=== PATIENT | male | born 1960 | race Caucasian/White ===

== ENCOUNTER 2018-01-13 08:30 | Outpatient (RCR) | payer OTHER, SELFPAY ==
--- NOTE | 2017-12-19 08:30 | PTTR_ITS ---
DATE: 12/19/17 SUBJECTIVE: Naren indicates since starting the soft tissue mobilization on his hip, he is definitely noted improvement with decreased stiffness. Manual therapy: (26859m2).Did receive inferior mobs while in supine position with hip and knee flexed to 90 degrees. This was followed by soft tissue mobilization throughout the glut, TFL, proximal ITB and hip flexors while in L sidelying and supine positions. He did receive stretching of the R hamstring, ITB, piriformis, TFL and quad. Therapeutic procedures (26164g9). * x See flow sheet: focus was on strengthening of R LE and hip stabilizers. * x Provided skilled instruction in proper exercise performance: * x Provided skilled manual cues to facilitate proper muscle recruitment and/ or movement pattern: * Other: performed 20 mins of wellness at no charge. Total treatment time: 50 mins/ Direct 30 mins. SG/dl
--- NOTE | 2017-12-22 08:30 | PTTR_ITS ---
DATE: 12/22/17 SUBJECTIVE: Patient reports his doctor s appointment went well and he said everything was looking good. He did not have an x-ray done at his appointment. He states he is still planning on returning to work on January 30. He is still having difficulty sleeping. OBJECTIVE: Manual therapy: (62720x3). Performed STM right posterior lateral hip into gluteal musculature, piriformis, and ITB. Therapeutic procedures (86203j0). [X] See flow sheet: Continued progressing LE strengthening and core stabilization program. [X] Provided skilled instruction in proper exercise performance: for proper body mechanics and postural awareness. [X] Provided skilled manual cues to facilitate proper muscle recruitment and/or movement pattern: Continued with wellness portion of program x 30 minutes to complete ther-ex portion of program. Direct treatment time: 30 minutes Total treatment time: 60 minutes Aspen Arita, SPT Wanda Neri, MPT
--- NOTE | 2017-12-25 13:15 | PTTR_ITS ---
DATE: 12/25/17 SUBJECTIVE: Naren states that he was sore in upper buttock region after his last session. OBJECTIVE: Manual therapy: (96624a7). stretching of bilateral LE including hamstrings, ITB and piriformis. LE distractions via leg pulls. ROM t/o all planes. He went into prone and received STM t/o right upper buttock with focus on glut medius, piriformis, and TFL. PRT' s and CFM t/o pelvic brim, sacral border and along proximal ITB. Therapeutic procedures (29449e3). * x See flow sheet: for global LE strength and stabilization with focus on gluts. * x Provided skilled instruction in proper exercise performance: proper glut engagement as well as postural cues and avoiding compensatory mvmt patterns. Ended with cryo to posterior hip and buttock x 10 min with legs elevated. Direct treatment time: 45 min Total treatment time: 60 min
--- NOTE | 2017-12-30 10:00 | PTTR_ITS ---
DATE: December 30, 2017 SUBJECTIVE: Naren continued to note that he is not sleeping well. He normal is 6 hours of sleep, he reports he is currently judith to get over 2 hours of sleep. He has tried multiple medications and they do not seem to be helping. He notes this is the prime time that his hip aches into the ITB region. He has tried self massage with use of the foam roller at home. He has trialed both ice and heat with minimal relief. Overall functional feels that he is steadily improving. OBJECTIVE: Manual therapy: ([id number]).STM throughout the lateral hip and gluteal musculature in left side lying position with pillow in between legs for comfort. TPR and CFM to the greater trochanter. IASTM followed to the ITB working distal to proximal. KT tape to the ITB provided. Will monitor his response to the more aggressive soft tissue work and with use of the tape to see if this provided him any further relief. Therapeutic procedures ([id number]). * X See flow sheet: Open and closed kinetic chain strength and stabilization per protocol. Held on SL lift due to mild irritation into the glut musculature. * X Provided skilled instruction in proper exercise performance: promoting core engagement and proper postural awareness. * X Provided skilled manual cues to facilitate proper muscle recruitment and/ or movement pattern: * X Other:20 minutes of Wellness portion of the program followed. Ended with cryotherapy post session for 10 minutes to the lateral left hip and thigh. Will follow up 1 more time this week and continue with progression within symptom allowance. Direct treatment time: 30 minutes Total treatment time: 60 minutes
--- NOTE | 2018-01-01 11:43 | PTTR_ITS ---
DATE: 01/01/18 SUBJECTIVE: Naren states that he is doing okay. He felt as though the kinesiotape was helpful. OBJECTIVE: Manual therapy: (06045e9). Mobilizations of hip including inferior glides, ROM t/o all planes. Stretching of hamstrings, piriformis and ITB. LE distractions via leg pulls. STM t/o ITB and TFL. CFM over greater trochanter using IASTM (graston tools) I then applied Kinesiotape to ITB using I strip. He performed his ther ex routine via [facility] at no charge. Direct treatment time: 30 min Total treatment time: 60 min
--- NOTE | 2018-01-05 08:46 | PTTR_ITS ---
DATE: 01/05/18 OBJECTIVE: Therapeutic procedures (88590e8). Today Naren performed his ther-ex routine (per flow sheets). He was instructed in a 2 Day per week MSP. Naren notes he is holding up fairly, and has seen improvements. He is not reporting a great deal of right hip discomfort. Still reporting that the night time is more difficult in terms of achiness. He has difficulty finding a comfortable position for sleep. Naren performed today's routine without difficulty. Will monitor his response and see him later in the week for initiation of Day 2 strengthening. Direct treatment time: 8:30 til 9:10 A.M. Completed the remainder of his program from 9:10 til 9:40 A.M. via Wellness at no charge. RF/gc
--- NOTE | 2018-01-08 08:06 | PTTR_ITS ---
DATE: 01/08/18 OBJECTIVE: Today Naren was instructed in day #2 of his strengthening program. Will now carry out his strengthening via MSP. Naren did tolerate today's session well without significant increase in pain. Was able to complete all stretching and strengthening with mild to moderate fatigue noted throughout the LE and core. Treatment concluded without the use of modalities, Moving forward with Naren we will co-treat, having Naren receive soft tissue mobilization 1x per week with either TESSIE Huber or a SENIOR QUALITY ANALYST. Will look to recheck Naren's program in 2 to 3 weeks prior to his return to work in mid January. Therapeutic procedures ([id number]). Direct treatment time: 8:30 til 9:10 A.M. ZACKERY/jacey
--- NOTE | 2018-01-13 10:21 | PTTR_ITS ---
DATE: 01/13/18 SUBJECTIVE: Naren reports that he is doing well. OBJECTIVE: Manual therapy: ([id number]). STM t/o hip and glut region. PRT's of glut medius and lelo. IASTM using Graston tools t/o lateral hip and into ITB, and greater trochanter. Scar tissue mobs. He went on to complete his independent ther ex routine for global LE strength and hip/glut stabilization. Direct treatment time: 20 min Total treatment time: 60 min (no charge for ther ex routine)
== END 2018-01-16 23:59 | disposition home or self-care (01) ==
LOC: PT 08:30
PROVIDERS: PCP Emergency Medicine; Referring Provider Orthopaedic Surgery; Visit Provider Orthopaedic Surgery
DX: Z47.1 Aftercare following joint replacement surgery (principal); Z96.641 Presence of right artificial hip joint
CPT/HCPCS: 97110; 97140

== ENCOUNTER 2018-08-11 09:19 | Outpatient (CLI) | payer OTHER, SELFPAY ==
[2018-08-11 11:40] LABS: Anion Gap 7.2 mmol/L (3-11); BUN 17 mg/dL (7-18); CO2 30.8 mmol/L (21.0-32.0); CREATININE 1.04 mg/dL (0.70-1.30); Calcium 9.6 mg/dL (8.5-10.1); Chloride 103 mmol/L (98-107); Cholesterol 236 mg/dL (50-200); Glucose 83 mg/dL (70-100); HDL Cholesterol 51 mg/dL (40-60); LDL CHOLESTEROL 149 mg/dL (<100); Potassium 4.7 mmol/L (3.5-5.1); Sodium 141 mmol/L (136-145); Triglyceride 139 mg/dL (30-150)
== END 2018-08-11 09:39 ==
PROVIDERS: PCP Emergency Medicine; Visit Provider Family Medicine
DX: I10 Essential (primary) hypertension (principal); E78.1 Pure hyperglyceridemia
CPT/HCPCS: 36415; 80048; 80061; 83721

== ENCOUNTER 2018-09-30 09:41 | Outpatient (CLI) | payer OTHER, SELFPAY ==
[2018-10-01 10:06] LABS: PSA, Screening 1.2 ng/ml (0-3.5)
== END 2018-09-30 10:01 ==
PROVIDERS: PCP Emergency Medicine; Visit Provider Emergency Medicine
DX: Z12.5 Encounter for screening for malignant neoplasm of prostate (principal)
CPT/HCPCS: 36415; 84153

== ENCOUNTER 2020-10-11 09:06 | Outpatient (REF) | payer OTHER, SELFPAY ==
[2020-10-11 13:59] LABS: Calculated LDL 154 mg/dL (<100); Cholesterol 241 mg/dL (<200); HDL Cholesterol 70 mg/dL (40-60); Triglyceride 85 mg/dL (<150)
== END 2020-10-11 09:07 | disposition home or self-care (01) ==
LOC: LBN 09:06
PROVIDERS: PCP Emergency Medicine; Visit Provider Emergency Medicine
DX: Z00.00 Encounter for general adult medical examination without abnormal findings (principal); Z13.220 Encounter for screening for lipoid disorders
CPT/HCPCS: 80061

== ENCOUNTER 2021-02-08 12:03 | Emergency (ER) | payer OTHER, SELFPAY ==
--- OUTSIDE RECORDS SUMMARY | 2021-02-08 12:38 | XMS_ITS ---
:1960 Author Care Team Providers Name Role Phone YAMILE RYLEY Primary Care Provider [phone] KATE DYE General Surgeon [phone] Allergies Code Code System Name Reaction Severity Status Onset 2670 RxNorm Codeine Headache Mild Active ? 3355 RxNorm Diclofenac Dizziness Mild to Active ? Moderate 727895 RxNorm House Dust ? ? Active ? Shellfish Anaphylaxis Severe Active ? Derived Medications Name Status Start Date Stop Date ? ? amoxicillin 500 mg capsule Completed ? 10/20 cyclobenzaprine 10 mg tablet Completed ? 08/2018 hydromorphone 2 mg tablet Completed ? 2018 ibuprofen 800 mg tablet Active ? Not avai lable lorazepam 1 mg tablet Completed ? 10/20/2018 magnesium 250 mg (as magnesium oxide) tablet Active ? Not available Take 1 tablet every day by oral route in the evening. meloxicam 15 mg tablet Completed ? 9 montelukast 10 mg tablet Active ? Not chai ilable pantoprazole 20 mg tablet,delayed release Active ? Not available one tablet once daily ranitidine 300 mg tablet Active ? Not chai ilable Xarelto 10 mg tablet Completed ? 10/20/2018 Problems Name Status Onset Date Source ? Finding of Esophagus Active ? History Disorder of Esophagus Active ? History Procedures Date Name Performed by ? 11/12/2018 Hernia Repair Epigastric Information not available Notes: irreducible epigastric hernia, umbilical hernia 05/27/2017 Egd Information not avai lable Notes: distal esophageal stricture; Large hiatal hernia; Antral gastritis; 11/07/2008 05/19/2017 Total Hip Arthroplasty Information not a vailable Notes: right 05/30/2014 Colonoscopy Information not avai lable Notes: at [facility] 05/19/2014 Total Hip Arthroplasty Information not a vailable Notes: left Results Lab Results Date Name Specimen Result Interpretation Description Value Range Status Address ? 05/27/2017 [place], TISS ? Final microbiology ? Final [place] [facility] ([facility] : [address] 05/27/2017 Pathology Study TISS ? Report results below ? Final [facility] ab (Internal) : [address] Past Encounters None recorded. Social History Tobacco Smoking Status Never Smoker Vaccine List None recorded. Plan of Care Reminders Provider Appointments None ? ? recorded. Lab None ? ? recorded. Referral None ? ? recorded. Procedures None ? ? recorded. Surgeries None ? ? recorded. Imaging None ? ? recorded. Vitals 12/07/2018 01:45PM Office 15 Height 165.1 cm 10/27/2018 01:00PM Office 15 Height 165.1 cm 09/30/2018 Height Weight BMI Blood Pressure 165.1 cm 71.21 kg 26.1 kg/m2 114/76 mm[Hg] 05/23/2017 Weight 72.57 kg 05/23/2017 Height 167.64 cm 05/05/2017 Weight Blood Pressure 72.12 kg 108/70 mm[Hg] 05/05/2017 Height 167.01 cm
[2021-02-08 12:55] VITALS: BP 137/85; PULSE 78; RESP 16; O2SAT 98
--- NOTE | 2021-02-08 13:15 | DI.RAD_ITS ---
Exam(s) XR THUMB LT EXAM: XR THUMB LT CLINICAL HISTORY: laceration, injury. TECHNIQUE: 2D digital imaging was performed. COMPARISON: No exams were available for comparison FINDINGS: Soft tissue avulsion and bandage dorsally. No obvious acute fracture. Small calcific density seen o ff the interphalangeal joint noted but this appears corticated, probably sesamoid. Mild degenerative changes noted in the interphalangeal joint. No radiopaque foreign body. IMPRESSION: No obvious thumb fracture evident. DATA REPOSITORY: RADIATION DOSE DELIVERED:
--- NOTE | 2021-02-08 13:46 | ED.GENADUL_ITS ---
Discharge Plan Disposition Patient Disposition: HOME Condition: Stable Discharge Details Clinical Impression: Laceration of left thumb Primary Care Provider: Augustus Olsen ED Provider: Hans Bustos Home Meds and New Rx's Prescriptions: New cephalexin 500 mg tablet 500 mg PO BID Qty: 9 RF: 0 No Action acetaminophen 500 MG tablet 2 tab PO PRN RF: 0 Annika-Harvey Plus Cold/CoughFm 1 EACH capsule 1 ea PO PRN RF: 0 amoxicillin 500 MG capsule 500 mg PO RF: 0 montelukast 10 mg tablet 10 mg PO DAILY Qty: 60 RF: 6 triamcinolone acetonide 0.1 % cream 1 applic topical BID Qty: 453.6 RF: 4 Discharge Instructions Instructions: Laceration (ED) Additional Instructions: Please keep dressing intact for the next 4 days. Change dressing daily. Monitor for signs including increased redness, warmth, or discharge. Please follow-up with orthopedic surgery for repeat wound check next week. Take antibiotic as prescribed. Medication reconciliation was not performed today. Please be sure to discuss your medications with your doctor. Take tylenol for pain. Dose according to label Return to the ER immediately for any worsening or new concerning symptoms. Referrals: [facility] [Provider Group] Discharge Data Discharge Date/Time-TO BE ENTERED AT DEPARTURE: 02/08/21 15:28 Medical Decision Making 60-year-old male with laceration of his right distal thumb involving eponychium. Sensory function intact. Motor function intact. Extensor tendon function intact. No damage to the nailbed. Digital block was performed. Wound irrigated with copious sterile saline and repaired. Sterile dressing was applied. Splint was applied. Patient advised to follow-up with orthopedics given complexity of wound and nail fold involvement. HPI General Mode of arrival: ambulatory . Date/Time Provider Initiated Documentation: 02/08/21 13:28 . Limitations to Documentation: no limitations . Information obtained by: patient . HPI Narrative: 60-year-old male presents with chief complaint of laceration. Patient notes that a window dropped on his thumb and he sustained laceration distally. This occurred just prior to arrival. Wound is bleeding. Bleeding improved with dressing. Symptoms have been persistent. Related Data Home Medications Medication Instructions Recorded Confirmed acetaminophen 2 tab PO PRN 04/13/14 02/08/21 [id number]-acetaminophen 1 ea PO PRN 08/12/17 02/08/21 [Annika-Harvey Plus Cld-Cough Cp] amoxicillin 500 mg PO cap 09/15/17 02/08/21 montelukast 10 mg tablet 10 mg PO DAILY #60 tab-cap 05/02/20 02/08/21 triamcinolone acetonide 0.1 % 1 applic TOPICAL BID #453.6 g 08/14/20 02/08/21 topical cream cephalexin 500 mg PO BID #9 tab 02/08/21 Previous Rx's Medication Instructions Recorded montelukast 10 mg tablet 10 mg PO DAILY #60 tab-cap 05/02/20 triamcinolone acetonide 0.1 % 1 applic TOPICAL BID #453.6 g 08/14/20 topical cream cephalexin 500 mg PO BID #9 tab 02/08/21 Allergies Allergy/AdvReac Type Severity Reaction Status Date / Time shellfish derived Allergy Severe Anaphylaxsi Verified 10/11/20 08:22 s codeine AdvReac Mild HEADACHE Verified 10/11/20 08:22 diclofenac AdvReac caused Verified 10/11/20 08:22 sweating/lightheaded/dizzy DUST Allergy Intermediate Uncoded 10/11/20 08:22 General Stated Complaint: Laceration ALEX: 3 Review of Systems Musculoskeletal Musculoskeletal: Reports as per HPI Integumentary/Breasts Skin/Breast: Reports as per HPI [facility] Medical History Encounter for annual physical exam Laceration of left thumb Surgical History Colonoscopy - [facility] 05/30/14; [facility] [place] Family History Mother Heart disease Father , age 81 Lung cancer Heart disease Stroke Kidney failure Sister No problems noted. Sister Alcohol abuse Brother Depression Hyperlipidemia Hypertension Son Alcohol abuse Son Cancer Daughter No problems noted. 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 Pets and animals: No What is your relationship status?: How often do you talk on the phone with friends or family?: decline to answer How often do you get together with friends or relatives?: decline to answer How often do you attend samaritan or rastafari services?: decline to answer Do you belong to any clubs or organized social groups?: decline to answer Panel score (0-1 are the most socially isolated patients): 1 What type of physical activity do you participate in: aerobic and weight lifting Duration: 45-60 minutes/day Frequency: 5-6 times per week Katelin/Anabaptism: Protestant Seatbelt use: always Helmet use: No Drive intox or ride w/intox [employer]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 Exam Const General: cooperative and no acute distress Skin Trauma: laceration (4cm rt thumb) Neuro General: patient alert and patient awake Extrem Right upper extremity: hand Details: normal capillary refill, neuromotor exam normal, neurosensory exam normal, tendon exam normal and laceration (distal thumb, 4cm, jagged, involves eponychial him and overlying nail plate) Course Vital Signs Vital signs: Vital Signs Pulse 78 02/08/21 12:55 Respiratory Rate 16 02/08/21 12:55 Blood Pressure 137/85 02/08/21 12:55 Pulse Oximetry 98 02/08/21 12:55 Pulse 78 02/08/21 12:55 Respiratory Rate 16 02/08/21 12:55 Blood Pressure 137/85 02/08/21 12:55 Pulse Oximetry 98 02/08/21 12:55 Pain Level 2 02/08/21 12:55 Procedures Laceration Laceration 1: Site: hand Side (If applicable): left Size (cm): 4 Description: flap and irregular Depth: simple, single layer Local Anesthetic: Lidocaine 1% Pre-repair: wound explored, irrigated extensively and deep structures intact Skin layer closed with: other (prolene) Size (cm): 5-0 Number of sutures: 8 Technique: simple, interrupted Nerve Block Nerve Block 1: Time out performed: Yes Local Anesthetic: Lidocaine 1% Side: left Nerve Blocks: digital (1st digit) Procedure Successful: Yes Patient Tolerated Procedure: well Complications: none
[2021-02-08] MEDS: Cephalexin 500 MG CAP PO (15:43)
== END 2021-02-08 15:28 | disposition home or self-care (01) ==
PROVIDERS: Emergency Provider Student in an Organized Health Care Education/Training Program; PCP Emergency Medicine
DX: S67.02XA Crushing injury of left thumb, initial encounter (principal); S61.012A Laceration without foreign body of left thumb without damage to nail, initial encounter; W20.8XXA Other cause of strike by thrown, projected or falling object, initial encounter
CPT/HCPCS: 12002; 73140

== ENCOUNTER 2023-11-13 13:53 | Outpatient (RCR) | payer OTHER, SELFPAY ==
--- NOTE | 2023-11-13 14:00 | HOLTER_ITS ---
APPROVED REPORT Conclusion This is a 48-hour Holter monitor Predominant rhythm was sinus with an average heart rate of 93. Minimum was 66, maximum 140 PVCs were noted comprising 5.1% of the total Atrial premature beats were present, comprising 2.6% of total There was no atrial fibrillation, no high-grade AV block, no pauses greater than 3 seconds
== END 2023-11-16 23:59 | disposition home or self-care (01) ==
LOC: CARDOPNVT 13:53
PROVIDERS: PCP Nurse Practitioner Family; Visit Provider Nurse Practitioner Family
DX: I49.9 Cardiac arrhythmia, unspecified (principal)
CPT/HCPCS: 93225

== ENCOUNTER 2023-11-17 14:14 | Outpatient (RCR) | payer OTHER, SELFPAY | END 2023-12-17 23:59 | disposition home or self-care (01) | LOC: CARDOPNVT 14:14 | PROVIDERS: PCP Nurse Practitioner Family; Visit Provider Nurse Practitioner Family | DX: I49.3 Ventricular premature depolarization (principal); I49.1 Atrial premature depolarization | CPT/HCPCS: 93226 ==

== ENCOUNTER 2023-12-01 09:47 | Outpatient (CLI) | payer OTHER, SELFPAY ==
[2023-12-01 12:38] LABS: Anion Gap 9.4 mmol/L (3-11); BUN 12 mg/dL (7-18); CO2 28.6 mmol/L (21.0-32.0); CREATININE 1.1 mg/dL (0.70-1.30); Calcium 9.4 mg/dL (8.5-10.1); Chloride 104 mmol/L (98-107); Glucose 109 mg/dL (74-106); Potassium 3.9 mmol/L (3.5-5.1); Sodium 142 mmol/L (136-145); TSH (W/Ref FT4) 1.51 uIU/mL (0.36-3.74)
== END 2023-12-01 09:48 | disposition home or self-care (01) ==
PROVIDERS: PCP Nurse Practitioner Family; Visit Provider Nurse Practitioner Family
DX: I49.9 Cardiac arrhythmia, unspecified (principal); R03.0 Elevated blood-pressure reading, without diagnosis of hypertension
CPT/HCPCS: 36415; 80048; 84443

== ENCOUNTER 2024-12-28 03:33 | Outpatient (CLI) | payer OTHER, SELFPAY ==
[2024-12-28 13:31] LABS: ALT 28 U/L (16-63); AST 29 U/L (15-37); Albumin 3.9 g/dL (3.4-5.0); Alkaline Phosphatase 96 U/L (46-116); Anion Gap 10.2 mmol/L (3-11); BUN 18 mg/dL (7-18); Bilirubin, Total 1.0 mg/dL (0.2-1.0); CO2 25.8 mmol/L (21.0-32.0); Calcium 9.0 mg/dL (8.5-10.1); Calculated LDL 136 mg/dL (<100); Chloride 102 mmol/L (98-107); Cholesterol 211 mg/dL (<200); Estimated GFR 84.57 (mL/min/1.73m2); Glucose 66 mg/dL (74-106); HDL Cholesterol 67 mg/dL (>or=40); Potassium 4.2 mmol/L (3.5-5.1); Sodium 138 mmol/L (136-145); Total Protein 7.4 g/dL (6.4-8.2); Triglyceride 42 mg/dL (<150)
[2024-12-28 21:30] LABS: PSA, Screening 2.5 ng/mL (<=4.5)
== END 2024-12-28 03:34 | disposition home or self-care (01) ==
LOC: LOS 03:33
PROVIDERS: PCP Nurse Practitioner Family; Visit Provider Nurse Practitioner Family
DX: Z00.00 Encounter for general adult medical examination without abnormal findings (principal); Z12.5 Encounter for screening for malignant neoplasm of prostate
CPT/HCPCS: 36415; 80053; 80061; 84153

== ENCOUNTER 2025-01-03 17:55 | Emergency (ER) | payer OTHER, SELFPAY ==
[2025-01-03 17:57] VITALS: BP 185/101; PULSE 95; RESP 18; TEMP 36.7; O2SAT 95
--- NOTE | 2025-01-03 18:10 | W.ED.GENAD ---
Discharge Plan Disposition Patient Disposition: Transfer-Acute Inpatient Care Specific Acute Inpt Facility: Other Condition: Stable Discharge Details Clinical Impression: Partial traumatic amputation of finger through phalanx Primary Care Provider: Kasisdy Guevara ED Provider: Danii Mitchell Home Meds and New Rx's Prescriptions: No Action pantoprazole 20 mg tablet,delayed release (DR/EC) 20 mg PO DAILY Qty: 90 1RF acetaminophen 500 MG tablet 2 tab PO PRN montelukast 10 mg tablet 10 mg PO DAILY Qty: 90 4RF triamcinolone acetonide 0.1 % cream 1 applic topical BID Qty: 30 1RF HPI General Date/Time Provider Initiated Documentation: 01/03/25 18:09. HPI Narrative: Jean Claude is a 64-year-old male who presents to the emergency department today for evaluation of partial amputation of the left index finger with tablesaw. Tetanus booster performed 2 weeks ago Right-handed, injured an hour ago due to table saw accident. Significant bleeding was able to be controlled with pressure dressing, no loss of consciousness. No previous injuries to the same finger, not on blood thinners. Brought to ED by friend. No pain medication taken since incident. Current pain level 3/10. Related Data Home Medications ?Medication ?Instructions ?Recorded ?Confirmed acetaminophen 500 mg tablet 2 tab PO PRN 04/13/14 01/03/25 montelukast 10 mg tablet 10 mg PO DAILY #90 tabs 08/10/24 01/03/25 triamcinolone acetonide 0.1 % 1 applic topical BID #30 grams 11/15/24 01/03/25 topical cream pantoprazole 20 mg tablet,delayed 20 mg PO DAILY #90 tabs 12/13/24 01/03/25 release Previous Rx's ?Medication ?Instructions ?Recorded montelukast 10 mg tablet 10 mg PO DAILY #90 tabs 08/10/24 triamcinolone acetonide 0.1 % 1 applic topical BID #30 grams 11/15/24 topical cream pantoprazole 20 mg tablet,delayed 20 mg PO DAILY #90 tabs 12/13/24 release Allergies Allergy/AdvReac Type Severity Reaction Status Date / Time shellfish derived Allergy Severe Anaphylaxsi Verified 01/03/25 18:00 s codeine AdvReac Mild HEADACHE Verified 01/03/25 18:00 diclofenac AdvReac caused Verified 01/03/25 18:00 sweating/lightheaded/dizzy DUST Allergy Intermediate Other (See Uncoded 01/03/25 18:00 Comment) General Stated Complaint: Laceration ALEX: 3 Exam Narrative Exam Narrative: General Appearance: Normal. Patient is alert and oriented, no acute distress Vital signs: Within normal limits, elevated BP noted. Skin: Bleeding from amputated finger well controlled. Partial fingertip amputation just proximal to nailbed of distal phalanx. No color change to the tip. Moderate bleeding with dressing taken down, bleeding well-controlled pressure dressing. Psychiatric: Normal. Course Vital Signs Vital signs: Vital Signs Temperature 36.7 C 01/03/25 17:57 Pulse 95 H 01/03/25 17:57 Respiratory Rate 18 01/03/25 17:57 Blood Pressure 185/101 H 01/03/25 17:57 Pulse Oximetry 95 01/03/25 17:57 Temperature 36.7 C 01/03/25 17:57 Pulse 95 H 01/03/25 17:57 Respiratory Rate 18 01/03/25 17:57 Blood Pressure 185/101 H 01/03/25 17:57 Pulse Oximetry 95 01/03/25 17:57 Oxygen Delivery Method Room Air 01/03/25 17:57 Oxygen Flow Rate 0 01/03/25 17:57 Pain Level 6 01/03/25 17:57 Medical Decision Making Initial Assessment: 64-year-old male with partial fingertip amputation from table saw injury. Bleeding controlled. ED Course: - Wound wrapped in [place] - Ordered X-ray to evaluate for tuft fracture - Provided Tylenol Call placed to [facility] transfer center, hand surgery is unable to perform reattachment/revascularization; closest facility would be [facility]. I did call [facility], discussed case with Dr. Cerda, hand fellow. Provided images of x-rays and photos of hand. She reports that they would likely be able to reattach fingertip, unclear if reperfusion will be needed. Patient accepted as ED to ED transfer (Dr Jackson accepting). Patient and his are agreeable with plan of care. Ancef administered as recommended. Final Assessment: Partial distal finger amputation from table saw injury. Bleeding controlled. X-ray revealed comminuted fracture. Tylenol and ancef given. Clinical Impression: Partial finger amputation Disposition: Transfer to [facility] ED to ED transfer for hand surgery evaluation Patient Education: Keep hand elevated. Patient consented to the use of RAO Imaging Data Radiologic Study: Radiologist's impression: Exam(s) XR FINGER LT INDEX EXAM: XR FINGER LT INDEX CLINICAL HISTORY: partial ampuation of L index finger. TECHNIQUE: 2D digital imaging was performed. Three views. COMPARISON: None. FINDINGS: BONES: Comminuted fracture of the distal phalanx with significant separation of fracture fragments. No significant angulation. No visible extension to the distal interphalangeal joint.. No bony destructive lesion is seen. JOINTS: No dislocation present. Mild underlying degenerative changes. SOFT TISSUE: Gauze overlies the finger. Extensive laceration at the level of the distal phalanx.. IMPRESSION: Comminuted fracture of the distal phalanx of the index finger. 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 Sister Alcohol abuse Brother Depression Hyperlipidemia Hypertension Son Alcohol abuse Son Cancer Daughter No problems noted. 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 Pets and animals: No Sexually active: Yes Do you think of yourself as: straight/heterosexual Current gender identity: male What is your relationship status?: How often do you talk on the phone with friends or family?: decline to answer How often do you get together with friends or relatives?: decline to answer How often do you attend jain or buddhist services?: decline to answer Do you belong to any clubs or organized social groups?: decline to answer Panel score (0-1 are the most socially isolated patients): 1 What type of physical activity do you participate in: weight lifting Duration: 45-60 minutes/day Frequency: 3-4 times per week Katelin/Adventist: Uatsdin Special katelin needs: No Seatbelt use: always Helmet use: No Drive intox or ride w/intox driver utility worker: No
--- NOTE | 2025-01-03 18:30 | DI.RAD_ITS ---
Exam(s) XR FINGER LT INDEX EXAM: XR FINGER LT INDEX CLINICAL HISTORY: partial ampuation of L index finger. TECHNIQUE: 2D digital imaging was performed. Three views. COMPARISON: None. FINDINGS: BONES: Comminuted fracture of the distal phalanx with significant separation of fracture fragments. No significant angulation. No visible extension to the distal interphalangeal joint.. No bony destructive lesion is seen. JOINTS: No dislocation present. Mild underlying degenerative changes. SOFT TISSUE: Gauze overlies the finger. Extensive laceration at the level of the distal phalanx.. IMPRESSION: Comminuted fracture of the distal phalanx of the index finger. DATA REPOSITORY: RADIATION DOSE DELIVERED:
[2025-01-03 18:31] VITALS: BP 179/104
[2025-01-03] MEDS: Acetaminophen 500 MG TAB 1000 MG PO (18:33)
[2025-01-03] MEDS: Lidocaine 1% Pres-Free 5 ML VIAL 10 ML IJ (18:33)
[2025-01-03] MEDS: ceFAZolin 2,000 MG in Normal Saline 100 ML 200 MG IVPB (19:53)
== END 2025-01-03 20:55 | disposition short-term general hospital (02) ==
PROVIDERS: Emergency Provider Nurse Practitioner Family; PCP Nurse Practitioner Family
DX: S68.621A Partial traumatic transphalangeal amputation of left index finger, initial encounter (principal); W31.2XXA Contact with powered woodworking and forming machines, initial encounter
CPT/HCPCS: 96365; 99285; 73140; J0690; J2003